=== PATIENT | male | born 1995 | race African-American/Black ===

== ENCOUNTER 2017-12-02 20:31 | Emergency (ER) | payer SELFPAY ==
[~2017-12-02] VITALS: Ht 190.5 cm; Wt 106.0 kg
[~2017-12-02 20:31] MED LIST: ADVAIR HF1 IN; ADVAIR HF2 IN; ALBUTEROL S2.5 MG/.5 IN; ALBUTEROL0.083 % IN; ALBUTEROL0.5 % IN; ALBUTEROL2.5 MG/3 M IN; AMOXICILLIN500 MG OR; AMOXICILLIN500 MG PO; NASONEX50 MCG/AC; ORAPRED ODT30 MG OR; PREDNISO30ODT OR; SINGULAIR OR; VENTOLIN HFA IN; ZITHROMAX250 MG OR
[2017-12-02] MEDS ORDERED: SINGULAIR10 MG PO (20:40)
[2017-12-02 21:30] LABS: INFLUENZA A NONE DETECTED (NONE DETECT); INFLUENZA B NONE DETECTED (NONE DETECT)
[2017-12-02] MEDS ORDERED: PROVENTIL HFA IN (22:47)
[2017-12-02 22:58] VITALS: BP 145/91
== END 2017-12-02 23:00 | disposition home or self-care (01) | DRG 203 ==
LOC: ED 20:31
PROVIDERS: Emergency Medicine
DX: J45.901 Unspecified asthma with (acute) exacerbation (principal)

== ENCOUNTER 2024-06-16 08:06 | Emergency (ER) | payer SELFPAY ==
[2024-06-16] VITALS (10 sets, daily range): BP systolic 114–131; BP diastolic 77–91
[~2024-06-16] VITALS: Ht 190.5 cm; Wt 120.0 kg
[~2024-06-16 08:06] MED LIST changes: +PROVENTIL HFA IN; +SINGULAIR10 MG PO
[2024-06-16] MEDS ORDERED: ALBUTEROL SULFATE 2.5 MG VIAL IN ONE (08:25)
[2024-06-16] MEDS ORDERED: IPRATROPIUM BROMIDE 0.5 MG/2.5 ML SOL IN ONE (08:25)
[2024-06-16] MEDS ORDERED: MAGNESIUM SULFATE 50% 1 GM/2 ML IV ONE (08:25)
[2024-06-16] MEDS ORDERED: TERBUTALINE SULFATE 1 MG/VIAL SDV SC ONE (08:30)
[2024-06-16] MEDS ORDERED: SODIUM CHLORIDE 0.9% 1,000 ML IV ONE (08:30)
[2024-06-16] MEDS ORDERED: VENTOLIN HFA108 MCG PO (08:39)
[2024-06-16] MEDS ORDERED: ADVAIR DISKU IN (08:39)
[2024-06-16] MEDS ORDERED: DEXAMETHASON6 MG PO (08:39)
[2024-06-16] MEDS ORDERED: MAGNESIUM SULFATE HEPTAHYDRATE 50 ML IV ONE (08:50)
== END 2024-06-16 10:58 | disposition home or self-care (01) | DRG 203 ==
LOC: ED 08:06
DX: J45.901 Unspecified asthma with (acute) exacerbation (principal)
CPT/HCPCS: J1100; J3105; J3475

== ENCOUNTER 2024-06-28 20:27 | Emergency (ER) | payer SELFPAY ==
[~2024-06-28] VITALS: Ht 190.5 cm; Wt 82.5 kg
[2024-06-28] VITALS (11 sets, daily range): BP systolic 111–148; BP diastolic 72–102
[~2024-06-28 20:27] MED LIST changes: +ADVAIR DISKU IN; +DEXAMETHASON6 MG PO; +VENTOLIN HFA108 MCG PO
[2024-06-28] MEDS ORDERED: predniSONE 20 MG/TAB PO ONE (21:05)
[2024-06-28] MEDS ORDERED: IPRATROPIUM-Albuterol 0.5MG-2.5MG/3 ML NEB ONE (21:05)
[2024-06-28] MEDS ORDERED: PREDNISONE50 MG PO (22:53)
[2024-06-28] MEDS ORDERED: PROAIR RES108 MCG/AC PO (22:53)
== END 2024-06-28 23:07 | disposition home or self-care (01) | DRG 203 ==
LOC: ED 20:27
DX: J45.901 Unspecified asthma with (acute) exacerbation (principal); Z20.822 Contact with and (suspected) exposure to COVID-19